=== PATIENT | female | born 2005 | race African-American/Black ===

== ENCOUNTER 2025-08-04 12:10 | Emergency (ER) | payer SELFPAY ==
[~2025-08-04] VITALS: Ht 157.5 cm; Wt 50.2 kg
[2025-08-04] MEDS ORDERED: REGL10TA6 PO (13:48)
[2025-08-04 13:54] VITALS: BP 107/53; TEMP 96.5; O2SAT 100
== END 2025-08-04 13:57 | disposition home or self-care (01) ==
LOC: M ED 12:10
DX: O21.9 Vomiting of pregnancy, unspecified (principal); Z3A.22 22 weeks gestation of pregnancy

== ENCOUNTER → 2025-09-08 | Outpatient (CLI) | payer MEDICAID ==
[~2025-09-08] MED LIST: REGL10TA6 PO
[2025-09-08 14:21] LABS: GLUCOSE CHALLENGE TEST 1 HOUR 54 MG/DL (LESS THAN 140)
[2025-09-08 14:30] LABS: PLATELET COUNT, AUTOMATED 197 10^3/uL (150-450)
[2025-09-08 14:51] LABS: HIV 1&2 SCREEN NEGATIVE (NEGATIVE)
[2025-09-08 14:58] LABS: HEPATITIS C VIRUS ABY INDEX < 0.02 INDEX (<0.8)
[2025-09-08 15:23] LABS: Trichomonas vaginalis (AMP) NOT DETECTED (NEGATIVE)
[2025-09-08 15:47] LABS: GC DNA AMPLIFICATION NEGATIVE (NEGATIVE)
== END ==
LOC: M PLALAB 10:53
PROVIDERS: ATTEND Obstetrics & Gynecology
DX: Z34.80 Encounter for supervision of other normal pregnancy, unspecified trimester (principal)

== ENCOUNTER 2025-10-20 13:57 | Emergency (ER) | payer MEDICAID ==
[2025-10-20] MEDS ORDERED: ASPI81CH33 PO (14:31)
[2025-10-20] MEDS ORDERED: PRENTAB9 PO (14:31)
[2025-10-20] MEDS ORDERED: OSEL75CA2 PO (17:19)
== END 2025-10-20 14:38 | disposition admitted as inpatient to this hospital (09) ==
LOC: M ED 13:57
DX: Z53.21 Procedure and treatment not carried out due to patient leaving prior to being seen by health care provider (principal)

== ENCOUNTER 2025-10-20 14:07 | Outpatient (CLI) | payer MEDICAID ==
[~2025-10-20] VITALS: Ht 160 cm; Wt 56.7 kg
[2025-10-20 14:26] VITALS: BP 107/59; O2SAT 100
[2025-10-20] MEDS ORDERED: ASPI81CH33 PO (14:31)
[2025-10-20] MEDS ORDERED: PRENTAB9 PO (14:31)
[2025-10-20] MEDS ORDERED: HOME MED LIST COMPLETE! XX SCH (14:35)
[2025-10-20] MEDS: ACETAMINOPHEN 500 MG TAB PO ONE (15:12)
[2025-10-20 15:39] LABS: BASO # 0.0 10^3/uL (0.0-0.2); BASO % 0.2 % (0.0-1.0); EOS # 0.1 10^3/uL (0.0-0.5); EOS % 1.0 % (0.0-3.0); LYMPH # 0.8 10^3/uL (1.5-5.0); LYMPH % 10.3 % (24.0-44.0); MONO # 0.9 10^3/uL (0.0-0.8); MONO % 11.2 % (2.0-8.0); NEUTROPHILS # 6.2 10^3/uL (1.5-8.5); NEUTROPHILS % 76.3 % (36.0-66.0); PLATELET COUNT, AUTOMATED 138 10^3/uL (150-450)
[2025-10-20 15:41] VITALS: BP 128/67
[2025-10-20 15:56] LABS: ALT/SGPT 40 U/L (7.0-40); AST/SGOT 38 U/L (<34); CALCIUM LEVEL 8.0 MG/DL (8.5-10.1); CARBON DIOXIDE LEVEL 22 MMOL/L (20-31); CHLORIDE LEVEL 105 MMOL/L (98-107); CREATININE FOR GFR 0.61 MG/DL (0.55-1.30); GLOMERULAR FILTRATION RATE > 90.0 (>60); POTASSIUM SERUM 3.7 MMOL/L (3.5-5.1); SODIUM LEVEL 136 MMOL/L (136-145)
[2025-10-20 16:23] VITALS: O2SAT 98
[2025-10-20 17:01] VITALS: BP 117/67
[2025-10-20 17:08] LABS: APPEARANCE, URINE HAZY (CLEAR); BACTERIA, URINE AUTO 1+ (NEGATIVE); BILIRUBIN, URINE AUTO NEGATIVE (NEGATIVE); BLOOD, URINE BLOOD NEGATIVE (NEGATIVE); GLUCOSE, URINE (UA) AUTO NEGATIVE (NEGATIVE); KETONE, URINE AUTO NEGATIVE (NEGATIVE); LEUKOCYTE ESTERASE, URINE AUTO NEGATIVE (NEGATIVE); MUCUS, URINE SMALL (NEGATIVE); NITRITE, URINE AUTO NEGATIVE (NEGATIVE); PROTEIN, URINE AUTO 1+ mg/dL (NEGATIVE); RBC, URINE AUTO 1 /HPF (0-3); SPECIFIC GRAVITY URINE AUTO 1.025 (1.002-1.035); SQUAMOUS EPITHELIAL CELL UR AU 2 /HPF (0-6); UROBILINOGEN, URINE AUTO 2.0 mg/dL (0.0-2.0); WBC, URINE AUTO 5 /HPF (0-3)
[2025-10-20] MEDS: LR 1,000 ML IV ONE (17:17)
[2025-10-20] MEDS: OSELTAMIVIR PHOSPHATE 75 MG CAP PO ONE (17:18)
[2025-10-20] MEDS ORDERED: OSEL75CA2 PO (17:19)
[2025-10-20 17:59] VITALS: BP 101/54; O2SAT 100
[2025-10-20] MEDS: ONDANSETRON 4MG/2ML VIAL IV SCH (18:21)
[2025-10-20] MEDS: CEPACOL LOZENGE PO PRN (18:29)
== END 2025-10-20 20:19 | disposition home or self-care (01) ==
LOC: M LDO 14:07
PROVIDERS: ATTEND Advanced Practice Midwife
DX: O26.893 Other specified pregnancy related conditions, third trimester (principal); O99.53 Diseases of the respiratory system complicating the puerperium; R10.24 Suprapubic pain; M54.50 Low back pain, unspecified; J09.X2 Influenza due to identified novel influenza A virus with other respiratory manifestations; Z3A.33 33 weeks gestation of pregnancy
CPT/HCPCS: 36415; 59025; 71045; 80053; 81001; 85025; 87086; 87486; 87581; 87633; 87798; G0463; J2405